=== PATIENT | female | born 1990 | race African-American/Black ===

== ENCOUNTER 2020-03-02 17:32 | Emergency (ER) | payer OTHER, SELFPAY ==
--- NOTE | 2020-03-02 17:56 | ED.UPPEXIN ---
HPI - Extremity Injury (Upper) General Chief Complaint: Wound/Laceration Stated Complaint: Index finger lac Time Seen by Provider: 03/02/20 17:52 Source: patient Mode of arrival: ambulatory Limitations: no limitations History of Present Illness HPI narrative: Patient presents for evaluation of right left index finger laceration. Patient states she was cutting and avocado with a knife in her right hand when it slipped and cut through her left index finger. She reports no active bleeding. No severe pain. Minimal pain with movement. Patient's tetanus is up-to-date. Related Data Allergies Allergy/AdvReac Type Severity Reaction Status Date / Time No Known Allergies Allergy Verified 05/28/19 06:13 Review of Systems Review of Systems: Narrative: CONSTITUTIONAL: Denies fever CARDIOVASCULAR: Denies chest pain GASTROINTESTINAL: Denies abdominal pain SKIN: Reports laceration to left index finger MUSCULOSKELETAL: Denies finger pain NEUROLOGIC: Denies numbness PMFSH Past Medical History Medical History (Updated 03/02/20 @ 18:48 by Callie Starkey MD) No pertinent past medical history Surgical History Surgical History (Updated 03/02/20 @ 18:46 by Callie Starkey MD) H/O section Social History Social History (Updated 03/02/20 @ 18:46 by Callie Starkey MD) Smoking status: Never smoker Substance use: never Living arrangements: with family Gender identity (if verbalized by the patient): Female Exam Narrative: Exam Narrative: GENERAL: Awake, alert, conversant HEAD: Normocephalic, atraumatic. EYES: PERRLA and EOMI. ENT: Nares clear, no rhinorrhea or epistaxis. Mucous membranes moist. NECK: Supple. CHEST: No respiratory distress, breathing even and non labored HEART: Regular rate, sinus rhythm ABDOMEN:Non distended, non tender EXTREMITIES: Normal range of motion. No edema. Radial pulse 2+. Intact sensation median, ulnar, radial nerve distribution. SKIN: Warm, dry, no rash. 1.5 cm superficial left second finger laceration. Proximal phalanx. Minimal active bleeding. No foreign body identified. NEURO:No focal deficits. Alert and oriented x3 Course Vital Signs Vital signs: Vital Signs Temperature 36.8 C 03/02/20 18:02 Pulse Rate 79 03/02/20 18:02 Respiratory Rate 18 03/02/20 18:02 Blood Pressure 136/89 03/02/20 18:02 Pulse Oximetry 100 03/02/20 18:02 Temperature 36.8 C 03/02/20 18:02 Pulse Rate 79 03/02/20 18:02 Respiratory Rate 18 03/02/20 18:02 Blood Pressure 136/89 03/02/20 18:02 Pulse Oximetry 100 03/02/20 18:02 Procedures Laceration Laceration 1: Date: 03/02/20 Time: 18:47 Site: hand Side (If applicable): left Size (cm): 1.5 Description: linear Depth: simple, single layer Local Anesthetic: lidocaine 1% Amount of anesthesia used (mL): 3 Pre-repair: wound explored and irrigated ====== Skin Level ====== Skin layer closed with: prolene Size (cm): 5-0 Number of sutures: 3 Technique: simple, interrupted ====== Subcutaneous Layer ====== ====== Muscle Layer ====== ====== Tendon Layer ====== MDM - Extremity Injury (Upper) MDM Narrative Medical decision making narrative: Patient was superficial left index finger laceration which was repaired. No deep tissue injury, no foreign body identified. No difficulty with movement making osseous injury very unlikely. No deformity and patient is neurovascularly intact. Patient to be discharged home with wound care instructions. Discharge Plan Discharge Clinical Impression: Laceration Patient Disposition: Home, Self-Care Condition: Stable Instructions: Laceration (ED) Additional Instructions: Please keep your wound clean and dry. Please do not soak it in any water. You may wash with antibacterial soap and pat it to dry. Please do not scrub the wound. Please have the woun
[2020-03-02 18:02] VITALS: BP 136/89; PULSE 79; RESP 18; TEMP 36.8; O2SAT 100
== END 2020-03-02 19:03 | disposition home or self-care (01) ==
PROVIDERS: Emergency Provider Emergency Medicine
DX: S61.211A Laceration without foreign body of left index finger without damage to nail, initial encounter (principal); W26.0XXA Contact with knife, initial encounter; Y93.G1 Activity, food preparation and clean up
CPT/HCPCS: 12001; 99282

== ENCOUNTER 2023-04-24 02:14 | Emergency (ER) | payer OTHER, SELFPAY ==
[2023-04-24 02:15] VITALS: BP 142/99; PULSE 81; RESP 16; TEMP 36.4; O2SAT 100
--- NOTE | 2023-04-24 02:50 | ED.GENADULT ---
HPI - General Adult General Chief complaint: Dental/Oral Stated complaint: gums inflammed Time Seen by Provider: 04/24/23 02:42 History of Present Illness HPI narrative: The patient is a 33-year-old female who presents to emergency department with chief complaint of inflamed gums. Patient reports she has an appointment scheduled this week with a dentist reports he started had a lot of discomfort in the upper gum his lab reports no drainage the Related Data Allergies Allergy/AdvReac Type Severity Reaction Status Date / Time No Known Allergies Allergy Verified 05/28/19 06:13 Review of Systems Review of Systems: A 10 system review of systems was completed on the patient and is negative except for what is stated in the HPI. Nursing and ancillary documentation was reviewed. PMFSH Past Medical History Medical History No pertinent past medical history Surgical History Surgical History H/O section Social History Social History Smoking status: Never smoker Substance use: never Living arrangements: with family Gender identity (if verbalized by the patient): Female Exam Narrative: GENERAL: Well-appearing, well-nourished, and in no acute distress. HEAD: Normocephalic, atraumatic. EYES: PERRLA and EOMI. ENT: Nares clear, no rhinorrhea or epistaxis. Mucous membranes moist. Multiple carious teeth he is having more dental fractures tenderness is going to NECK: Supple. CHEST: Clear to auscultation. No respiratory distress. HEART: Regular rate and rhythm. No murmur heard. Normal peripheral pulses. ABDOMEN: Soft, nontender, nondistended, normal active bowel sounds. EXTREMITIES: Normal range of motion. No edema. SKIN: Warm, dry, no rash. NEURO: No focal deficits. Alert and oriented x3. PSYCH: Normal mood and affect. Course Vital Signs Vital signs: Vital Signs Temperature 36.4 C L 04/24/23 02:15 Pulse Rate 81 04/24/23 02:15 Respiratory Rate 16 04/24/23 02:15 Blood Pressure 142/99 H 04/24/23 02:15 Pulse Oximetry 100 04/24/23 02:15 Oxygen Delivery Room Air 04/24/23 02:15 Temperature 36.4 C L 04/24/23 02:15 Pulse Rate 81 04/24/23 02:15 Respiratory Rate 16 04/24/23 02:15 Blood Pressure 142/99 H 04/24/23 02:15 Pulse Oximetry 100 04/24/23 02:15 Oxygen Delivery Room Air 04/24/23 02:15 Medical Decision Making Vital Signs Vital Signs: Vital Signs Temperature 36.4 C L 04/24/23 02:15 Pulse Rate 81 04/24/23 02:15 Respiratory Rate 16 04/24/23 02:15 Blood Pressure 142/99 H 04/24/23 02:15 Pulse Oximetry 100 04/24/23 02:15 Oxygen Delivery Room Air 04/24/23 02:15 Temperature 36.4 C L 04/24/23 02:15 Pulse Rate 81 04/24/23 02:15 Respiratory Rate 16 04/24/23 02:15 Blood Pressure 142/99 H 04/24/23 02:15 Pulse Oximetry 100 04/24/23 02:15 Oxygen Delivery Room Air 04/24/23 02:15 Discharge Plan Discharge Clinical Impression: Dental abscess Patient Disposition: Home, Self-Care Condition: Stable Instructions: Antibiotic Form, Dental Abscess (ED) Additional Instructions: Please follow-up with a dentist as soon as possible Prescriptions: New amoxicillin 500 mg capsule 500 mg PO Q12H Qty: 20 0RF diclofenac potassium 50 mg tablet 50 mg PO TID PRN (Reason: pain) Qty: 21 0RF No Action naproxen 500 mg tablet,delayed release (DR/EC) 500 mg PO BID Qty: 14 0RF Follow-up/Referrals: Laz Cabrera MD [Physician] - PHYSICIAN,SENIOR [employer] DEVELOPER [Primary Care Provider] - Stand Alone Forms: Work/School Release IP Time of Disposition: 02:55
[2023-04-24] MEDS: HYDROcodone/acetaminophen (*CRX) 5-325 MG TABLET 1 TAB PO (03:05)
[2023-04-24] MEDS: AMOXICILLIN 500 MG CAPSULE PO (03:05)
== END 2023-04-24 03:20 | disposition home or self-care (01) ==
LOC: ANHED 02:56
PROVIDERS: Emergency Provider Emergency Medicine
DX: K04.7 Periapical abscess without sinus (principal)
CPT/HCPCS: 99283; A9270

== ENCOUNTER 2023-09-19 13:36 | Outpatient (CLI) | payer OTHER, SELFPAY ==
--- NOTE | 2023-09-19 14:30 | NEURO_ITS ---
Impression: # Complains of pain and numbness and nocturnal paresthesia of both hands. # Moderate Carpal Tunnel Syndrome, right more than left. # Needle/EMG exam mildly abnormal. Nerve Conduction Studies Anti Sensory Summary Table Stim Site NR Peak (ms) P-T Amp (?V) Site1 Site2 Delta-P (ms) Dist (cm) Daryl (m/s) Left Median Anti Sensory (2-3nd Digit) Wrist 4.2 35.2 Wrist 2-3nd Digit 4.2 14.0 33 Wrist 4.8 37.6 Wrist 2-3nd Digit 4.2 14.0 33 Right Median Anti Sensory (2-3nd Digit) Wrist 4.5 20.5 Wrist 2-3nd Digit 4.5 14.0 31 Wrist 5.8 8.6 Wrist 2-3nd Digit 4.5 14.0 31 Left Radial Anti Sensory (Base 1st Digit) Wrist 2.0 22.0 Wrist Base 1st Digit 2.0 0.0 Right Radial Anti Sensory (Base 1st Digit) Wrist 2.4 20.0 Wrist Base 1st Digit 2.4 0.0 Left Ulnar Anti Sensory (5th Digit) Wrist 2.1 74.3 Wrist 5th Digit 2.1 14.0 67 Right Ulnar Anti Sensory (5th Digit) Wrist 2.3 48.0 Wrist 5th Digit 2.3 14.0 61 Motor Summary Table Stim Site NR Onset (ms) O-P Amp (mV) Site1 Site2 Delta-0 (ms) Dist (cm) Daryl (m/s) Left Median Motor (Abd Poll Brev) Wrist 4.4 3.4 Elbow Wrist 4.8 26.0 54 Elbow 9.2 2.9 Right Median Motor (Abd Poll Brev) Wrist 5.5 3.3 Elbow Wrist 4.7 25.0 53 Elbow 10.2 2.5 Left Ulnar Motor (Abd Dig Minimi) Wrist 2.0 8.5 A Elbow Wrist 4.5 27.0 60 A Elbow 6.5 7.1 Right Ulnar Motor (Abd Dig Minimi) Wrist 2.2 7.9 A Elbow Wrist 4.5 28.0 62 A Elbow 6.7 7.6 F Wave Studies NR F-Lat (ms) L-R F-Lat (ms) Left Median (Mrkrs) (Abd Poll Brev) 27.10 0.94 Right Median (Mrkrs) (Abd Poll Brev) 28.03 0.94 Left Ulnar (Mrkrs) (Abd Dig Min) 24.53 0.15 Right Ulnar (Mrkrs) (Abd Dig Min) 24.69 0.15 EMG Side Muscle Nerve Root Ins Act Fibs Amp Dur Recrt Comment Right 1stDorInt Ulnar C8-T1 Nml Nml Nml Nml Nml Right Ext Indicis Radial (Post Int) C7-8 Nml Nml Nml Nml Nml Right Ext Digitorum Radial (Post Int) C7-8 Nml Nml Nml Nml Nml Right BrachioRad Radial C5-6 Nml Nml Nml Nml Nml Right PronatorTeres Median C6-7 Nml Nml Nml Nml Nml Right Abd Poll Brev Median C8-T1 Nml Nml Nml >12ms +2 Right ABD Dig Min Ulnar C8-T1 Nml Nml Nml Nml Nml Left 1stDorInt Ulnar C8-T1 Nml Nml Nml Nml Nml Left Ext Indicis Radial (Post Int) C7-8 Nml Nml Nml Nml Nml Left Ext Digitorum Radial (Post Int) C7-8 Nml Nml Nml Nml Nml Left BrachioRad Radial C5-6 Nml Nml Nml Nml Nml Left PronatorTeres Median C6-7 Nml Nml Nml Nml Nml Left Abd Poll Brev Median C8-T1 Nml Nml Nml >12ms +1 Left ABD Dig Min Ulnar C8-T1 Nml Nml Nml Nml Nml MTDD
== END 2023-09-19 13:37 | disposition home or self-care (01) ==
LOC: ANHNEURO 13:36
PROVIDERS: PCP Internal Medicine; Visit Provider Plastic Surgery
DX: G56.03 Carpal tunnel syndrome, bilateral upper limbs (principal)
CPT/HCPCS: 95886; 95911

== ENCOUNTER 2024-06-26 16:19 | Emergency (ER) | payer OTHER, SELFPAY ==
--- OUTSIDE RECORDS SUMMARY | 2024-06-26 16:22 | XMS_ITS | Data Portability ---
Author Organization [facility] Address [address] [place] [address] Assessment Encounter Date Assessment Date Assessment LastModified by Organization Details LastModified Time 07/11/2023 07/11/2023 Annual gynecological exam performed. Patient will come back in a year unless there are new symptoms. Not available 07/11/2023 10:31:32 Plan of Treatment Reminders Order Date Submit Date Provider Last Modified By Organization Details Last Modified Time Details Appointments None record ed. Lab None record ed. Referral None record ed. Procedures None record ed. Surgeries None record ed. Imaging None record ed. Medication Orders None record ed. Patient TargetsNo targets recorded. Patient InstructionsNo instructions recorded. Reason for Referral None Reported. Results Created Date Observation Date Name Description Value Unit Range Abnormal Flag Note LastModifiedBy Organization Detail LastModifiedTime 07/11/19 24 07/11/2023 IMAGE GUIDE D PAP AND HPV REGAR DLESS image guided Pap, HPV regardless of Pap result SEE RESULT S BELOW CASE REPOR T: Cytol ogy Gynec ologi sara Repor t Case: [id number] Autho dameon jaime Provi aditya: Navdeep Child Colle cted: 07/11 1034 POOL PLAYER Order ing Locat ion: [place] [facility] Recei dawson: 07/12 0043 First Scree n: Strut z, Willi am, CT Rescr een: Nacha mpass ak, Sivil ay, CT Speci men: Scree zoey Pap - Image d, Cervi x STATE MENT OF ADEQU ACY: Satis facto ry for evalu ation Trans forma tion zone compo nent absen t The absen ce of an endoc ervic al compo nent was confi rmed by an addit ional scredennis ner. FINAL DIAGN OSIS: Negat dona for Intra epith elial Lesio den or Duncan leung (NIL) . Elect suzi bridges kory d by Kellen amezcua, Alejandro garcía, CT on 2023 at 6:51 PM ----- ----- ----- ----- ----- ----- ----- ----- ----- ----- ----- ----- ----- ----- ----- ----- ----- ---- HPV RESUL TS: HPV mRNA E6/E7 : No HPV mRNA Detec jes NOTE: This high risk HPV mRNA assay detec ts fourt een high- risk HPV types (16, 18, 31, 33, 35, 39, 45, 51, 52, 56, 58, 59, 66, 68) witho ut diffe renti ation . COMME NT: This speci men was revie wed by a Cytot echno logis t and/o r Patho logis t (as indic ated in this repor t) after evalu ation using the Thinp rep Imagi ng Syste m. CLINI SARA INFOR MATIO N: Menst rual Statu s: LMP (if appli cable ): Clini sara Histo ry/Pr eviou s Pap: Type of Neopl renetta (if appli cable ): Signi fican t Clini sara Findi ngs: Other Histo ry: Hormo lala (if appli cable ): PAP EDUCA VIKKI L NOTE: The Pap Test is a scree zoey test with an inher ent false negat dona rate. Liqui d-bas ed sampl ing may decre ase, but will not elimi elinor, false negat dona resul ts. A negat dona resul t does not precl ude the prese nce and/o r devel opmen t of disea se, since the prese nce of abnor mal cells in the sampl e depen ds on the locat ion of the lesio n and sampl ing techn ique. Velia nued regul ar scree zoey is the best metho d of cance r preve ntion . If repor jes cytol ogic findi ng do not corre late with physi sara and/o r histo rical findi ngs, furth er inves tigat ion is recom teresa d, as clini hardeep myers nted. Not Available [facility] (Lab) [address], [place], [address], 07/14/2023 19:53:44 Result Notes None recorded. Procedures Surgical History Date Name Laterality Status Provider Name and Address Organization Details Recorded Time 3 Date of Last Pap Smear completed [facility] 07/11/2023 10:31:45 2 Caesarean Section completed [facility] 07/11/2023 10:42:08 Imaging Results None recorded. Procedure Notes None recorded. Medical Equipment None Reported. Allergies No known drug allergies Medications Name Sig Start Date Stop Date Status Note LastModified by Organization Details LastModified Time amoxicillin 500 mg capsule 500 MG ORALLY EVERY 12 HOURS 07/11 completed Not Available Not Available Not Available diclofenac potassium 50 mg tablet 50 MG ORALLY THREE TIMES A DAY NEEDED FOR PAIN 07/11 completed Not Available Not Available Not Available Vitals Date Recorded Body height Body mass index (BMI) Body weight Systolic blood pressure Diastolic blood pressure Provider Name and Address Organization Details Last Updated DateTime 07/11/2023 149.86 cm 39.2 kg/m2 39239.92 g 135 mm[Hg] 81 mm[Hg] Makenna Saucedo [facility] 10:38:47 Social History Question Answer Notes LastModified by Organizat ion Details LastModified Time Tobacco Smoking Status Never Smoker Makenna Saucedo [facility] 07/11/2023 10:41:52 What Is Your Level Of Alcohol Consumption? Occasional Information not available 07/11/2023 How Many Years Have You Consumed Alcohol? 10 Information not available 07/11/2023 Are You Blind Or Do You Have Difficulty Seeing? No Information not available 07/11/2023 What Is Your Level Of Caffeine Consumption? None Information not available 07/11/2023 How Much Tobacco Do You Chew? None Information not available 07/11/2023 In The 14 Days Before Symptom Onset, Have You Had Close Contact With A Laboratory-confir med COVID-19 While That Case Was Ill? No Information not available 07/11/2023 In The 14 Days Before Symptom Onset, Have You Had Close Contact With A Person Who Is Under Investigation For COVID-19 While That Person Was Ill? No Information not available 07/11/2023 Have You Been To An Area Known To Be High Risk For COVID-19? No Information not available 07/11/2023 Are You Deaf Or Do You Have Serious Difficulty Hearing? No Information not available 07/11/2023 What Type Of Diet Are You Following? SPECIFIC Information not available 07/11/2023 What Is The Highest Grade Or Level Of School You Have Completed Or The Highest Degree You Have Received? 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 No Information not available 07/11/2023 Do You Use Protection During Sex? Usually Information not available 07/11/2023 Do You Use Your Seat Belt Or Car Seat Routinely? No Information not available 07/11/2023 Do You Have Smoke And Carbon Monoxide Detectors In Your Home? No Information not available 07/11/2023 At What Age Did You Start Smoking Tobacco? 0 Information not available 07/11/2023 How Much Tobacco Do You Smoke? No Information not available 07/11/2023 Do You Feel Stressed (tense, Restless, Nervous, Or Anxious, Or Unable To Sleep At Night)? [id number] Information not available 07/11/2023 Do You Use Any Illicit Or Recreational Drugs? No Information not available 07/11/2023 Do You Use Sunscreen Routinely? Yes Information not available 07/11/2023 How Many Years Have You Smoked Tobacco? 0 Information not available 07/11/2023 Have You Used IV Drugs? No Information not available 07/11/2023 Sex: Unknown Functional Status Question Answer Note LastModified by Organization D etails LastModified Time Are you able to walk? YESWOREST Information not available 07/11/2023 What is your exercise level? Moderate Information not available 07/11/2023 Mental Status None recorded. Family History Relationship Description Onset Age of this Age Resolved Age Notes LastModified by Organization Details LastModified Time Unspecified Relation Family history unknown Not available 2023 10:31:42 Medical History Condition Response Allergies (Food, seasonal, environmental ) N Other N Breast Cancer N Drug/Latex Allergies/Reactions N Blood Transfusion N Dermatologic Disorders N Lung Disease N Defects or Inherited Disease N Breast Problem N Gestational Diabetes N Hematologic disorders N Anesthesia Complications N History of STI Y Deep Vein Thrombosis N Polycystic ovary syndrome N Anxiety Disorder N Autoimmune disease N Arthritis N Infertility N Polyps N Acid Reflux (GERD) N History of abnormal pap Y Cancer N Stroke N Varicosities N Neurologic/Epilepsy N Endometriosis N High Cholesterol N Headaches N Fibromyalgia N Kidney Disease N Heart Problems N Kidney or Bladder Problems N Thyroid Problems N GI Problems N Eating Disorder N Anemia N Art (IVF or FET) N Psychiatric Illness N Ovarian Cancer N Diabetes N Pulmonary (TB, Asthma) N Hepatitis/Liver Disease N No Past Medical History N Eczema N Urinary Tract Infection N Abuse/Domestic Violence N Asthma N Trauma/Violence N Depression/ depression N Heart Disease N Pre-Eclampsia N Hypertension N Osteoporosis N Thrombophilias N Gynecological History Statement/Question Response Abnormal Pap N Flow Moderate Date of LMP 06/22/2023 N On BCP's at Conception? N STIs/STDs Y Was last menstrual period normal Y HPV Vaccine Y Duration of Flow (days) 3 Current Control Method Condoms Age at First Child 16 Are cycles usually normal Y Frequency of Cycle (Q days) 30 Sexually Active? Y Condoms Menses Monthly Y Age of first menstrual cycle 10 Date of Last Pap Smear 06/21/2022 Sexual Problems? N LMP Approximate Desired Control Method Condoms N Obstetrics History GPAL:G 4 P 1 0 3 1 Type Value Full Term 1 Induced 3 Living 1 Total 4 Past Encounters Encounter ID Performer Location Encounter Start Date Encounter Closed Date Diagnosis/Indication Diagnosis SNOMED-CT Code Diagnosis ICD10 Code Diagnosis Note [id number] Taina Crowell [facility] [address] [address] 07/11/2023 10:26:02 07/11/2023 11:32:08 Gynecologic examination 96229426 Z01.419 Z11.51 Take Calcium with Vitamin D 1200mg daily if not receiving in daily diet. It is strongly advised to have an annual flu shot and up can obtain at most pharmacies . If you have not had a TDap shot in the last 10 years you should obtain one as well. Discussed with patient & provided with informatio n regarding Gardisil vaccine to prevent the 4 strains for HPV that cause cervical cancer if under age 26. Encourage safe sexual practices, to use condoms and limit partners if not already in a monogamous relationsh ip. Do monthly self breast exams. Have mammogram yearly or every other year depending on family history. BRCA testing is now available for patients with strong genetic history of female cancer. If interested contact the office. Engage in daily exercise of low impact aerobic exercise 45-60 minutes 4-5 times weekly. Avoid tobacco and illicit drugs as well as using moderation with alcohol intake less than 1-2 8 oz beverages daily. This lifestyle behavior pattern will lead to less health conditions and longer life span. If BMI greater than 25 weight watchers or dietary consult advised. Patient received above instructio ns, and questions have been answered. If you have any questions please call or respond to this email. Patient was made aware of the patient portal and may obtain a paper copy of today's plan if desired. Pap/hpv sent STD Screen declined Genetic Screen discussed Colon Screen na Dexa Screen na Routine Labs PCP Health Concerns Section Related Observation LastModified by Organization Detai ls LastModified Time None Recorded Concern Status LastModified by Organization Details LastModified Time None Recorded Advance Directives Directive None Recorded Payers Encounter Date Sequence Insurance Name Policy Number Policy Ng Covered Member ID Ng Member ID Guarantor Name 07/11/2023 1 [facility] (MEDICAID HMO) [id number] Kirsty Gray [id number] Kirsty Gray Notes Date Note Type Note Provider Name and Address Organization Details Recorded Time 07/11/2023 text/html Annual GYNReport ed bypatient.History: no gynecologic complaints Menstrual cycle:Normal menses Urinary symptoms:No hematuria; No incontinence Vulva:No genital lesion Vagina:Normal vaginal discharge Breast:No breast pain; No breast lump; No nipple discharge Current Contraception:Sati sfied with current contraception; Condoms Sexual complaints:No sexual complaints; No pain during intercourse; Normal libido Menopausal Symptoms:No menopausal symptoms; Normal vaginal lubrication Psychological symptoms:No depression; No anxiety; No PMDD Preventive measures:Encourage self breast examination; Encourage regular exercise; Encourage no tobacco use; Encourage regular mammograms starting age 40; Followed with yearly pap smears Taina Crowell [facility]- [address], [place], [address], [facility] 07/11/2023 11:30:50 OBGyn Episode Ob Episode Information Episode Created Date Number of Fetuses Patient Bloodtype Patient rh Status Prepregnancy Weight lbs Domestic Partner Domestic Partner Phone Father Name Instructor Business Education Status 07/11/19 24 1 CLOSED Fetus Data First Name Last Name Admitted to NICU Weight (g) Sex Living Outcome Pediatric Complications Fetus ID Race Codes Race Delivery Type , Induced Bruce Calculation Initial Bruce Date Initial Exam Date Initial Exam Provider Initial Ultrasound Date Last Menstrual Period Date Ultra Sound Weeks Gestation 0 Eighteen To Twenty Week Bruce Update Ultra Sound Date Fundal Height At Umbil Quickening Date Ultra Sound Latest Weeks Gestation Final Bruce Confirmed By Final Bruce Confirmed Date Final Bruce Date Ultra Sound Latest Days Gestation 0 0 Menstrual History Last Menstrual Date Menses Monthly On Bcp Conception Prior Menses Frequency Hcg Plus Date Menarche Onset Age Delivery Information Delivery Date Delivery Type Labor Anesthesia Weeks Gestation Incision Type Labor Labor Length Hrs Delivered By Post Complications Tubal Sterilization Discharge Date Comments 3 Discharge Information Feeding Method Contraceptive Method Maternal HG B and HCT Levels Ob Episode Information Episode Created Date Number of Fetuses Patient Bloodtype Patient rh Status Prepregnancy Weight lbs Domestic Partner Domestic Partner Phone Father Name Instructor Business Education Status 07/11/19 24 1 CLOSED Fetus Data First Name Last Name Admitted to NICU Weight (g) Sex Living Outcome Pediatric Complications Fetus ID Race Codes Race Delivery Type , Induced Bruce Calculation Initial Bruce Date Initial Exam Date Initial Exam Provider Initial Ultrasound Date Last Menstrual Period Date Ultra Sound Weeks Gestation 0 Eighteen To Twenty Week Bruce Update Ultra Sound Date Fundal Height At Umbil Quickening Date Ultra Sound Latest Weeks Gestation Final Bruce Confirmed By Final Bruce Confirmed Date Final Bruce Date Ultra Sound Latest Days Gestation 0 0 Menstrual History Last Menstrual Date Menses Monthly On Bcp Conception Prior Menses Frequency Hcg Plus Date Menarche Onset Age Delivery Information Delivery Date Delivery Type Labor Anesthesia Weeks Gestation Incision Type Labor Labor Length Hrs Delivered By Post Complications Tubal Sterilization Discharge Date Comments 1 Discharge Information Feeding Method Contraceptive Method Maternal HG B and HCT Levels Ob Episode Information Episode Created Date Number of Fetuses Patient Bloodtype Patient rh Status Prepregnancy Weight lbs Domestic Partner Domestic Partner Phone Father Name Instructor Business Education Status 07/11/19 24 1 CLOSED Fetus Data First Name Last Name Admitted to NICU Weight (g) Sex Living Outcome Pediatric Complications Fetus ID Race Codes Race Delivery Type 2863.07 [id number] M Full Term [id number] Primary Bruce Calculation Initial Bruce Date Initial Exam Date Initial Exam Provider Initial Ultrasound Date Last Menstrual Period Date Ultra Sound Weeks Gestation 0 Eighteen To Twenty Week Bruce Update Ultra Sound Date Fundal Height At Umbil Quickening Date Ultra Sound Latest Weeks Gestation Final Bruce Confirmed By Final Bruce Confirmed Date Final Bruce Date Ultra Sound Latest Days Gestation 0 0 Menstrual History Last Menstrual Date Menses Monthly On Bcp Conception Prior Menses Frequency Hcg Plus Date Menarche Onset Age Delivery Information Delivery Date Delivery Type Labor Anesthesia Weeks Gestation Incision Type Labor Labor Length Hrs Delivered By Post Complications Tubal Sterilization Discharge Date Comments 2 40 Discharge Information Feeding Method Contraceptive Method Maternal HG B and HCT Levels Ob Episode Information Episode Created Date Number of Fetuses Patient Bloodtype Patient rh Status Prepregnancy Weight lbs Domestic Partner Domestic Partner Phone Father Name Instructor Business Education Status 07/11/19 24 1 CLOSED Fetus Data First Name Last Name Admitted to NICU Weight (g) Sex Living Outcome Pediatric Complications Fetus ID Race Codes Race Delivery Type , Induced [id number] Bruce Calculation Initial Bruce Date Initial Exam Date Initial Exam Provider Initial Ultrasound Date Last Menstrual Period Date Ultra Sound Weeks Gestation 0 Eighteen To Twenty Week Bruce Update Ultra Sound Date Fundal Height At Umbil Quickening Date Ultra Sound Latest Weeks Gestation Final Bruce Confirmed By Final Bruce Confirmed Date Final Bruce Date Ultra Sound Latest Days Gestation 0 0 Menstrual History Last Menstrual Date Menses Monthly On Bcp Conception Prior Menses Frequency Hcg Plus Date Menarche Onset Age Delivery Information Delivery Date Delivery Type Labor Anesthesia Weeks Gestation Incision Type Labor Labor Length Hrs Delivered By Post Complications Tubal Sterilization Discharge Date Comments 6 Discharge Information Feeding Method Contraceptive Method Maternal HG B and HCT Levels
--- OUTSIDE RECORDS SUMMARY | 2024-06-26 16:22 | XMS_ITS | Clinical Summary ---
Author Organization [facility] Address [address] [place] [address] Care Team Providers Care Menhaden Fishing Crew Member Name Role Phone Unavailable Primary Care Provider Unavailabl e Source Comments [facility],non-owned Affiliates and Associated Physician Practices is amultiple site organization consisting of ambulatory clinics and hospital sitesin [place], [place], [place] and [place]. This disclosure is being madepursuant to the Care Everywhere program and may not contain all information available regarding this patient. Last updated 18.[facility] [email or web address] Allergies No known active allergies Social History Tobacco Use Types Packs/Day Years Used Date Smoking Tobacco: Never Assessed Sex and Gender Information Value Date Recorded Sex Assigned at Not on file Gender Identity Not on file Sexual Orientation Not on file Plan of Treatment Health Maintenance Due Date Last Done Comments PAP SMEAR 1988 HIV SCREENING 01/04/2003 HEPATITIS C SCREENING 12/31/2005 DTAP/TDAP/TD VACCINES (1 - Tdap) 01/04/2007 HEPATITIS B VACCINE (1 of 3 - 19+ 3-dose series) 01/04/2007 COVID-19 VACCINE (2023-2 5 season) 2024 INFLUENZA VACCINE (#1) 2024 DEPRESSION SCREENING 05/22/2024 ZOSTER VACCINE (1 of 2) 01/04/2038 HIB VACCINE Aged Out No longer eligi ble based on patient's age to complete this topic HPV VACCINE Aged Out No longer eligi ble based on patient's age to complete this topic MENINGOCOCCAL (Group B) VACCINE Aged Out No longer eligible based on patient's age to complete this topic MENINGOCOCCAL VACCINE Aged Out No papito arnoldo eligible based on patient's age to complete this topic PNEUMOCOCCAL VACCINE Aged Out No long er eligible based on patient's age to complete this topic
--- OUTSIDE RECORDS SUMMARY | 2024-06-26 16:22 | XMS_ITS | Patient Health Summary ---
Author Organization [facility] Address [address] [place] [address] Care Team Providers Care Stacker Operator Name Role Phone Unavailable Primary Care Provider Unavailabl e Note from [facility] [place],non-owned Affiliates and Associated Physician Practices is amultiple site organization consisting of ambulatory clinics and hospital sitesin [place], [place], [place] and [place]. This disclosure is being madepursuant to the Care Everywhere program and may not contain all information available regarding this patient. Last updated 18.[facility] [employer] Allergies No known active allergies Social History Tobacco Use Types Packs/Day Years Used Date Smoking Tobacco: Never Assessed Sex and Gender Information Value Date Recorded Sex Assigned at Not on file Gender Identity Not on file Sexual Orientation Not on file Procedures * SKIN TEST PPD - POINT OF CARE(Performed 08/14/2018) Performed for PPD screening test Results * SKIN TEST PPD - POINT OF CARE (08/14/2018) PPD neg Other MISCELLANEOUS SAMPLE S / Unknown 08/14/2018 Kirstie Napier SITE WORKER-OUTSIDE INDUSTRIAL SALES REPRESENTATIVE LAB - POINT OF [place] RE ORDERABLES
--- OUTSIDE RECORDS SUMMARY | 2024-06-26 16:22 | XMS_ITS | Referral Summary ---
Author Organization [facility] Address [address] [place] [address] Care Team Providers Care Associate Professor Of Music Name Role Phone Unavailable Primary Care Provider Unavailabl e Source Comments [facility],non-owned Affiliates and Associated Physician Practices is amultiple site organization consisting of ambulatory clinics and hospital sitesin [place], [place], [place] and [place]. This disclosure is being madepursuant to the Care Everywhere program and may not contain all information available regarding this patient. Last updated 18.[facility] [employer] Allergies No known active allergies Social History Tobacco Use Types Packs/Day Years Used Date Smoking Tobacco: Never Assessed Sex and Gender Information Value Date Recorded Sex Assigned at Not on file Gender Identity Not on file Sexual Orientation Not on file Plan of Treatment Not on file Administered Medications
[2024-06-26 16:48] VITALS: BP 133/91; PULSE 104; RESP 16; TEMP 36.4; O2SAT 100
--- NOTE | 2024-06-26 18:38 | PC.NURSE ---
pt left in NAD
--- OUTSIDE RECORDS SUMMARY | 2024-06-26 19:01 | XMS_ITS | Patient Health Summary ---
Author Organization [facility] Address [address] [place] [address] Care Team Providers Care Americanization Teacher Name Role Phone Unavailable Primary Care Provider Unavailabl e Note from [facility],non-owned Affiliates and Associated Physician Practices is amultiple site organization consisting of ambulatory clinics and hospital sitesin [place], [place], [place] and [place]. This disclosure is being madepursuant to the Care Everywhere program and may not contain all information available regarding this patient. Last updated 18.[facility] [employer] Allergies No known active allergies Social History [...] SAMPLE S / Unknown 08/14/2018 Kirstie Napier CORRECTIONAL OFFICER LIEUTENANT-PETROLEUM GEOLOGIST LAB - POINT OF [place] RE ORDERABLES
--- OUTSIDE RECORDS SUMMARY | 2024-06-26 19:01 | XMS_ITS | Clinical Summary ---
Author Organization [facility] Address [address] [place] [address] Care Team Providers Care Hotel Casino Floorperson Name Role Phone Unavailable Primary Care Provider Unavailabl e Source Comments [facility],non-owned Affiliates and Associated Physician Practices is amultiple site organization consisting of ambulatory clinics and hospital sitesin [place], [place], [place] and [place]. This disclosure is being madepursuant to the Care Everywhere program and may not contain all information available regarding this patient. Last updated 18.[facility] [employer] Allergies No known active allergies Social History [...]
--- OUTSIDE RECORDS SUMMARY | 2024-06-26 19:01 | XMS_ITS | Referral Summary ---
Author Organization [facility] Address [address] [place] [address] Care Team Providers Care Packer Dried Beef Name Role Phone Unavailable Primary Care Provider Unavailabl e Source Comments [facility],non-owned Affiliates and Associated Physician Practices is amultiple site organization consisting of ambulatory clinics and hospital sitesin [place], [place], [place] and [place]. This disclosure is being madepursuant to the Care Everywhere program and may not contain all information available regarding this patient. Last updated 18.[facility] [employer] Allergies No known active allergies Social History Tobacco Use Types Packs/Day Years Used Date Smoking Tobacco: Never Assessed Sex and Gender Information Value Date Recorded Sex Assigned at Not on file Gender Identity Not on file Sexual Orientation Not on file Plan of Treatment Not on file Administered Medications
== END 2024-06-26 18:38 | disposition left against medical advice (07) ==
DX: R51.9 Headache, unspecified (principal)
CPT/HCPCS: 99199

== ENCOUNTER 2024-06-27 08:22 | Emergency (ER) | payer OTHER, SELFPAY ==
--- NOTE | ~2024-06-27 | CT_ITS ---
EXAMINATION: CT brain wo con DATE: 06/27/2024 11:54 INDICATION: Migraines presenting with nausea and dizziness TECHNIQUE: Computed tomography (CT) of the head was performed without intravenous contrast. Sagittal and coronal reconstructions were performed. The mA was adjusted according to patient size. Iterative reconstruction technique was employed. The dose-length product was 605.33 mGy-cm. COMPARISON: None FINDINGS: No acute intracranial hemorrhage, acute infarction or abnormal extra axial fluid collection. Ventricl es are normal and symmetric. No mass/mass effect. The orbits, paranasal sinuses and mastoid air cells are normal. IMPRESSION: 1. Normal head CT. Reviewed, dictated and finalized at location A. ARDESS SUPERVISOR IMPRESSION: 1. Normal head CT.
[2024-06-27 08:26] VITALS: BP 134/86; PULSE 92; RESP 18; TEMP 36.9; O2SAT 100
--- OUTSIDE RECORDS SUMMARY | 2024-06-27 08:26 | XMS_ITS | Patient Health Summary ---
Author Organization [facility] Address [address] [place] [address] Care Team Providers Care Certified Credit Counselor Name Role Phone Unavailable Primary Care Provider Unavailabl e Note from [facility],non-owned Affiliates and Associated Physician Practices is amultiple site organization consisting of ambulatory clinics and hospital sitesin [place], [place], [place] and [place]. This disclosure is being madepursuant to the Care Everywhere program and may not contain all information available regarding this patient. Last updated 18.[facility] [employer] Allergies No known active allergies Social History [...] SAMPLE S / Unknown 08/14/2018 Kirstie Napier OPERATIONAL INTELLIGENCE OFFICER-SEMICONDUCTOR LAB TECHNICIAN LAB - POINT OF CA RE ORDERABLES
--- OUTSIDE RECORDS SUMMARY | 2024-06-27 08:26 | XMS_ITS | Referral Summary ---
Author Organization [facility] Address [address] [place] [address] Care Team Providers Care Knitting Supervisor Name Role Phone Unavailable Primary Care Provider Unavailabl e Source Comments [facility],non-owned Affiliates and Associated Physician Practices is amultiple site organization consisting of ambulatory clinics and hospital sitesin [place], [place], [place] and [place]. This disclosure is being madepursuant to the Care Everywhere program and may not contain all information available regarding this patient. Last updated 18.[facility] [employer] Allergies No known active allergies Social History Tobacco Use Types Packs/Day Years Used Date Smoking Tobacco: Never Assessed Sex and Gender Information Value Date Recorded Sex Assigned at Not on file Gender Identity Not on file Sexual Orientation Not on file Plan of Treatment Not on file Administered Medications
--- OUTSIDE RECORDS SUMMARY | 2024-06-27 08:26 | XMS_ITS | Clinical Summary ---
Author Organization [facility] Address [address] [place] [address] Care Team Providers Care Systems Manager Name Role Phone Unavailable Primary Care Provider Unavailabl e Source Comments [facility],non-owned Affiliates and Associated Physician Practices is amultiple site organization consisting of ambulatory clinics and hospital sitesin [place], [place], [place] and [place]. This disclosure is being madepursuant to the Care Everywhere program and may not contain all information available regarding this patient. Last updated 18.[facility] [employer] Allergies No known active allergies Social History [...]
[2024-06-27 10:57] VITALS: BP 124/90; PULSE 86; RESP 16; O2SAT 100
[2024-06-27] MEDS: ACETAMINOPHEN 500 MG TABLET 1000 MG PO (11:44)
--- NOTE | 2024-06-27 11:46 | PC.NURSE ---
at this time, pt refused IV and IV medicine. this RN educated on the benefits of medication and pt decided she didn't want to take them
--- OUTSIDE RECORDS SUMMARY | 2024-06-27 11:49 | XMS_ITS | Patient Health Summary ---
Author Organization [facility] Address [address] [address] Care Team Providers Care Bottle Gauger Name Role Phone Unavailable Primary Care Provider Unavailabl e Note from [facility],non-owned Affiliates and Associated Physician Practices is amultiple site organization consisting of ambulatory clinics and hospital sitesin [place], [place], [place] and [place]. This disclosure is being madepursuant to the Care Everywhere program and may not contain all information available regarding this patient. Last updated 18.[facility] [employer] Allergies No known active allergies Social History [...] SAMPLE S / Unknown 08/14/2018 Kirstie Napier PARISH VISITOR-GAMING COMMISSIONER LAB - POINT OF CA RE ORDERABLES
--- OUTSIDE RECORDS SUMMARY | 2024-06-27 11:50 | XMS_ITS | Referral Summary ---
Author Organization [facility] Address [address] [place] [address] Care Team Providers Care Water Fitness Instructor Name Role Phone Unavailable Primary Care Provider Unavailabl e Source Comments [facility],non-owned Affiliates and Associated Physician Practices is amultiple site organization consisting of ambulatory clinics and hospital sitesin [place], [place], [place] and [place]. This disclosure is being madepursuant to the Care Everywhere program and may not contain all information available regarding this patient. Last updated 18.[facility] [employer] Allergies No known active allergies Social History Tobacco Use Types Packs/Day Years Used Date Smoking Tobacco: Never Assessed Sex and Gender Information Value Date Recorded Sex Assigned at Not on file Gender Identity Not on file Sexual Orientation Not on file Plan of Treatment Not on file Administered Medications
--- OUTSIDE RECORDS SUMMARY | 2024-06-27 11:50 | XMS_ITS | Clinical Summary ---
Author Organization [facility] Address [address] [place] [address] Care Team Providers Care Excelsior Machine Operator Name Role Phone Unavailable Primary Care Provider Unavailabl e Source Comments [facility],non-owned Affiliates and Associated Physician Practices is amultiple site organization consisting of ambulatory clinics and hospital sitesin [place], [place], [place] and [place]. This disclosure is being madepursuant to the Care Everywhere program and may not contain all information available regarding this patient. Last updated 18.[facility] [employer] Allergies No known active allergies Social History [...]
--- NOTE | 2024-06-27 12:04 | ED_ITS ---
HPI - Headache General Chief Complaint: Headache Stated Complaint: pressure/tension at back of head, here yesterday Time Seen by Provider: 06/27/24 11:14 Source: patient Mode of arrival: ambulatory Limitations: no limitations History of Present Illness HPI Narrative: Patient is a 34-year-old female who presents the ED with report of headaches. Patient reports she has been having intermittent headaches over the last couple of weeks, described as a pressure in her posterior head which wraps around to her frontal region. Has been taking Tylenol/ibuprofen intermittently without significant improvement. Reports intermittent lightheadedness, nausea yesterday, photophobia. Denies vision changes, vomiting, syncope/LOC, fevers, neck pain, cough or cold symptoms, focal numbness or weakness. Patient did come to the ED yesterday, but left without being seen. Related Data Home Medications ?Medication ?Instructions ?Recorded ?Confirmed ?Last Taken ?Type burdock root 500 mg capsule mg PO 07/20/23 09/25/23 Unknown History lemon balm 1 tablet BYMOUTH DAILY 07/20/23 09/25/23 Unknown History magnesium oxide 1 tablet PO DAILY 07/20/23 09/25/23 Unknown History Allergies Allergy/AdvReac Type Severity Reaction Status Date / Time No Known Allergies Allergy Verified 06/27/24 08:24 Review of Systems Review of Systems: All systems reviewed & are unremarkable except as noted in HPI. All systems reviewed & are unremarkable except as noted in HPI and below PMFSH Past Medical History Medical History No pertinent past medical history Surgical History Surgical History H/O section (~12/2011) Family History Family History Father Heart disease Social History Social History Smoking status: Never smoker Alcohol intake: current Substance use type: does not use Lack of Transportation: No Lack of Food: Never True Current Housing: I Have Housing Concerned About Future Housing: No Difficulty Paying Gas/Electric Bills: No Difficulty Paying for Meds: No Currently Unemployed: No Education: High School Diploma/GED Difficulty w/ Childcare or Family Care: No Living arrangements: with family Gender identity (if verbalized by the patient): Female Exam Narrative: GENERAL: Well appearing, obese with BMI of 35.4, non-toxic, in no acute distress. HEAD: Normocephalic, atraumatic. EYES: PERRL/EOMI, no nystagmus, conjunctiva clear NECK: No meningeal signs RESPIRATORY: Airway patent, respirations nonlabored. Clear to auscultation bilaterally, no rales, rhonchi, wheezing. CARDIOVASCULAR: Regular rate and rhythm MUSCULOSKELETAL: Moves all extremities. No gross deformities. SKIN: Warm, dry, normal color. NEURO: A&O X3. Speech clear. Cranial nerves II-XII grossly intact. Steady gait. No ataxic movements. No focal deficits. No pronator drift. Equal retail presentation specialist strength bilaterally PSYCHIATRIC: Appropriate mood and affect. Normal interaction. Course Vital Signs Vital signs: Vital Signs Temperature 98.5 F 06/27/24 08:26 Pulse Rate 92 06/27/24 08:26 Respiratory Rate 18 06/27/24 08:26 Blood Pressure 134/86 06/27/24 08:26 Pulse Oximetry 100 06/27/24 08:26 Oxygen Delivery Room Air 06/27/24 08:26 Temperature 98.5 F 06/27/24 08:26 Pulse Rate 86 06/27/24 10:57 Respiratory Rate 16 06/27/24 10:57 Blood Pressure 124/90 06/27/24 10:57 Pulse Oximetry 100 06/27/24 10:57 Oxygen Delivery Room Air 06/27/24 08:26 MDM - Headache MDM Narrative Medical decision making narrative: Patient's headache was not sudden in onset or maximal in severity. There are no focal neurological deficits on exam. Subarachnoid hemorrhage is felt to be unlikely at this time. CT brain was obtained and negative. There is no history of fever and neck is supple on evaluation without meningeal signs. Meningitis is felt to be unlikely. No traumatic history or signs of trauma on evaluation. No vision changes or ocular signs of acute glaucoma. Patient declined to receive IV and IV medications. Given Tylenol here, declined IM Toradol. Patient's headache is felt to be benign cephalgia and reasonable for further outpatient management. Advised patient to follow with PCP for further evaluation. Given reasons to return. Medical Records Attestation: I reviewed the patient's medical records. Imaging Data Attestation: I personally reviewed and interpreted this imaging study as follows: Radiologist's impression: ITS Impressions Head CT 06/27/24 12:00 IMPRESSION: 1. Normal head CT. Discharge Plan Discharge Clinical Impression: Intermittent headache Patient Disposition: Home, Self-Care Condition: Stable Instructions: Antibiotic Form, Migraine Headache (ED), Acute Headache (ED) Additional Instructions: Continue Tylenol and ibuprofen as needed for pain. Utilize Zofran as needed for further nausea. Get plenty of rest. Stay well hydrated. Recommend low light/ low stimulus environment, limiting screen time. Follow-up with your primary care doctor for further evaluation if needed. Return to the ED if you experience worsening or severe pain, severe dizziness, passing out, vision changes, numbness or weakness in arm or leg, unable to keep down food or drink, or any other symptoms of concern. Patient Language: Kyrgyz Prescriptions: New ondansetron 4 mg tablet,disintegrating 4 mg PO Q8H PRN (Reason: nausea and vomiting) Qty: 15 0RF No Action magnesium oxide 1 tablet PO DAILY lemon balm 1 tablet BYMOUTH DAILY burdock root 500 mg capsule PO Follow-up/Referrals: UNKNOWN,DOCTOR [Primary Care Provider] - Time of Disposition: 12:06
== END 2024-06-27 13:04 | disposition home or self-care (01) ==
PROVIDERS: Emergency Provider Physician Assistant
DX: R51.9 Headache, unspecified (principal)
CPT/HCPCS: 70450; 96361; 96372; 96374; 96375; 99284; A9270

== ENCOUNTER 2024-09-13 07:12 | Emergency (ER) | payer OTHER, SELFPAY ==
--- NOTE | ~2024-09-13 | XR_ITS ---
EXAMINATION: XR chest 1V portable 09/13/2024 07:32 INDICATION: Cough PROCEDURE: AP portable chest COMPARISON: 09/2023 FINDINGS: The lungs are clear. The cardiomediastinal silhouette is within normal limits. There are no pleural effusions. There is no pneumothorax suspected. IMPRESSION: 1: NO ACUTE CARDIOPULMONARY DISEASE. Reviewed, dictated and finalized at location A.
--- OUTSIDE RECORDS SUMMARY | 2024-09-13 07:14 | XMS_ITS | Data Portability ---
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 Not Available [facility] (Lab) [address], [place], [address], 07/14/2023 19:53:44 Result Notes None recorded. Procedures Surgical History Date Name Laterality Status Provider Name and Address Organization Details Recorded Time 3 Date of Last Pap Smear completed Makenna [facility] 07/11/2023 10:31:45 2 Caesarean Section completed Makenna [facility] 07/11/2023 10:42:08 Imaging Results None recorded. [...] Updated DateTime 07/11/2023 149.86 cm 39.2 kg/m2 33288.92 g 135 mm[Hg] 81 mm[Hg] Makenna Saucedo [facility] 10:38:47 Social History Question Answer Notes LastModified by Organizat ion Details LastModified Time Tobacco Smoking Status Never Smoker Makenna Saucedo [facility] 07/11/2023 10:41:52 What Is Your Level [...] Or The Highest Degree You Have Received? 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 [id number] Information not available 07/11/2023 Do You Use [...] (Food, seasonal, environmental ) N Other N Drug/Latex Allergies/Reactions N Blood Transfusion N Breast Cancer N Dermatologic Disorders N Lung Disease N Defects or Inherited Disease N Breast Problem N Gestational Diabetes N Hematologic disorders N Anesthesia Complications N History of STI Y Deep Vein Thrombosis N Polycystic ovary syndrome N Anxiety Disorder N Autoimmune disease N Arthritis N Polyps N Infertility N Acid Reflux (GERD) N History of abnormal pap Y Cancer N Varicosities N Stroke N Neurologic/Epilepsy N Endometriosis N High Cholesterol N Fibromyalgia N Headaches N Kidney Disease N Heart Problems N Thyroid Problems N Kidney or Bladder Problems N GI Problems N Eating Disorder [...] SNOMED-CT Code Diagnosis ICD10 Code Diagnosis Note [id number] Taina Crowell [facility] [address] [address] 07/11/2023 10:26:02 07/11/2023 11:32:08 Gynecologic examination [id number] Z01.419 Z11.51 Take Calcium with Vitamin D [...] Ng Member ID Guarantor Name 07/11/2023 1 [facility] (MEDICAID HMO) [id number] Kirsty Gray [id number] Kirsty Gray Notes Date Note Type Note [...] Followed with yearly pap smears Taina Crowell [facility]- [address], [place], [address], [facility] 07/11/2023 11:30:50 OBGyn Episode Ob Episode Information Episode Created Date Number of Fetuses Patient Bloodtype Patient rh Status Prepregnancy Weight lbs Domestic Partner Domestic Partner Phone Father Name Freight Broker Agent Status 07/11/19 24 1 CLOSED Fetus Data [...] Domestic Partner Domestic Partner Phone Father Name Freight Broker Agent Status 07/11/19 24 1 CLOSED Fetus Data [...] Domestic Partner Domestic Partner Phone Father Name Freight Broker Agent Status 07/11/19 24 1 CLOSED Fetus Data First Name Last Name Admitted to NICU Weight (g) Sex Living Outcome Pediatric Complications Fetus ID Race Codes Race Delivery Type 2863.07 2704 M Full Term [id number] Primary Bruce Calculation Initial Bruce Date Initial [...] Domestic Partner Domestic Partner Phone Father Name Freight Broker Agent Status 07/11/19 24 1 CLOSED Fetus Data First Name Last Name Admitted to NICU Weight (g) Sex Living Outcome Pediatric Complications Fetus ID Race Codes Race Delivery Type , Induced [id number] Bruce Calculation Initial Bruce Date Initial Exam [...]
--- OUTSIDE RECORDS SUMMARY | 2024-09-13 07:14 | XMS_ITS | Clinical Summary ---
Author Organization [facility] Address [address] [place] [id number] Care Team Providers Care Bindery Machine Feeder Offbearer Name Role Phone No, Physician Primary Care Provider [phone] Encounters Date Type Department Care Team Description 08/05/2024 Results Follow-Up [facility] [address] [facility] [address] (Third Floor) [place] [address] Fanny Gao RN 08/02/2024 11:55 AM CDT Lab [facility] [address] [place] [id number] Pre-employment health screening examination 08/02/2024 Orders Only [facility] [address] [facility] [address] (Third Floor) [place] [address] Guille Banks MD Pre-employment health screening examination (Primary Dx) from Last 3 Months Immunizations Immunization Administration Dates Next Due DTP 09/27/1991,04/03/1990,1988 HPV, Quadrivalent 12/24/2007,06/12/2007,04/02/20 07 Hep A, Adult 04/28/2014 Hep B, Adolescent or Pediatric 04/27/2000 HiB 04/03/1990 Influenza, Split 06/04/2007 MMR 02/14/1992,04/03/1990 OPV 02/14/1992,04/03/1990,1988 Social History Tobacco Use Types Packs/Day Years Used Date Smoking Tobacco: Never Assessed Comments Unknown Sex and Gender Information Value Date Recorded Sex Assigned at Not on file Legal 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 Gender Identity Not on file Sexual Orientation Not on file Last Filed Vital Signs Vital Sign Reading Time Taken Comments Blood Pressure 138/80 02/28/2015 3:41 AM CDT Pulse 109 02/28/2015 3:41 AM CDT Temperature 36.9 C (98.5 F) 02/28/2015 3:41 AM CDT Respiratory Rate - - Oxygen Saturation 99% 02/28/2015 3:41 AM CDT Inhaled Oxygen Concentration - - Weight 65.8 kg (145 lb) 02/28/2015 3:41 AM CDT Height 149.9 cm (4' 11 ) 02/28/2015 3:41 AM CDT Body Mass Index 29.29 02/28/2015 3:41 AM CDT Plan of Treatment Not on file Procedures Procedure Name Priority Date/Time Associated Diagnosis Comments T-SPOT.TB Routine 08/02/2024 12:03 PM CDT Pre-employment health screening examination from Last 3 Months Results * T-SPOT.TB Blood (08/02/2024 12:03 PM CDT) [facility] T-SPOT.TB Negative SeeBelow Comment: Normal Value: Negative A negative test result does not exclude the possibility of exposure to or infection with Mycobacterium tuberculosis (M. tuberculosis). Patients with recent exposure to TB infected individuals exhibiting a negative T-SPOT.TB result should be considered for retesting within 6 weeks or if other relevant clinical symptoms indicate. Results from T-SPOT.TB testing must be used in conjunction with each individual's epidemiological history, current medical status, and results of other diagnostic evaluations. The T-SPOT.TB test is qualitative and results are reported as positive, borderline or negative, given that the test controls perform as expected. In line with the Centers for Disease Control and Prevention's 2010 recommendation to report quantitative measurements alongside the qualitative result, the laboratory provides spot counts for informational purposes only. The T-SPOT.TB test should not be interpreted as a quantitative test. T-SPOT.TB Panel A Spot Count 0 [facility] T-SPOT.TB Panel B Spot Count 1 [facility] T-SPOT.TB Negative Control Passed [facility] T-SPOT.TB Positive Control Passed [facility] Comment: Test Performed at: [facility] [employer] [address] [place] [id number] BRUNO,PHD Blood 08/02/2024 12:0 3 PM CDT 08/02/2024 1:22 PM CDT Narrative TAMY LAM - 08/04/2024 12:32 PM CDT Bill to [facility] - [address] Patient is employed by/enrolled at:->[facility] us Guille Banks MD LAB MICROBIOLOGY - GENERAL OR DERABLES Final Result TAMY [address] [facility] Department [place] [address] from Last 3 Months Insurance [facility] Care Teams Bindery Machine Feeder Offbearer Relationship Specialty Start Date End Date No, Physician PCP - General 08/02/24
--- OUTSIDE RECORDS SUMMARY | 2024-09-13 07:14 | XMS_ITS | Clinical Summary ---
Author Organization [facility] Address [address] [place] [place] [address] Care Team Providers Care Interactive Marketing Strategist Name Role Phone Unavailable Primary Care Provider Unavailabl e Source Comments [facility],non-owned Affiliates and Associated Physician Practices is amultiple site organization consisting of ambulatory clinics and hospital sitesin [place], [place], [place] and [place]. This disclosure is being madepursuant to the Care Everywhere program and may not contain all information available regarding this patient. 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 Gender Identity Not on file Sexual Orientation Not on file Plan of Treatment Health Maintenance Due Date Last Done Comments HIV SCREENING 01/04/2003 HEPATITIS C SCREENING 12/31/2005 DTAP/TDAP/TD VACCINES (1 - Tdap) 01/04/2007 HEPATITIS B VACCINE (1 of 3 - 19+ 3-dose series) 01/04/2007 COVID-19 VACCINE ( - 2023-2 5 season) 2024 DEPRESSION SCREENING 05/22/2024 INFLUENZA VACCINE (Season Ended) 2025 ZOSTER VACCINE (1 of 2) 01/04/2038 HIB VACCINE Aged Out No longer eligi ble based on patient's age to complete this topic HPV VACCINE Aged Out No longer eligi ble based on patient's age to complete this topic MENINGOCOCCAL (Group B) VACC INE SHARED DECISION-MAKING Aged Out No longer eligibl e based on patient's age to complete this topic MENINGOCOCCAL GROUPS A/C/Y/W VACCINE Aged Out No longer eligible b ased on patient's age to complete this topic PNEUMOCOCCAL VACCINE Aged Out No long er eligible based on patient's age to complete this topic
--- OUTSIDE RECORDS SUMMARY | 2024-09-13 07:14 | XMS_ITS | Encounter Summary ---
Author Organization [facility] Address [address] [place] [address] Care Team Providers Care Medication Technician Name Role Phone No, Physician Primary Care Provider [phone] Encounter Details Date Type Department Care Team (Late st Contact Info) Description 08/05/2024 Results Follow-Up [facility] Occupatiuonal Health [address] 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
--- OUTSIDE RECORDS SUMMARY | 2024-09-13 07:15 | XMS_ITS | Referral Summary ---
Author Organization [facility] Address [address] [place] [phone] Care Team Providers Care Regulatory Affairs Coordinator Name Role Phone No, Physician Primary Care Provider [phone] Encounters Date Type Department Care Team Description 08/05/2024 Results Follow-Up [facility] [address] [facility] Room [address] (Third Floor) [place] [address] Fanny Gao RN 08/02/2024 11:55 AM CDT Lab [facility] [address] [place] [address] Pre-employment health screening examination 08/02/2024 Orders Only [facility] [address] [facility] [address] (Third Floor) [place] [address] Guille Banks MD Pre-employment health screening examination [...] on file 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 T-SPOT.TB Panel A Spot Count 0 [facility] T-SPOT.TB Panel B Spot Count 1 [facility] T-SPOT.TB Negative Control Passed [facility] T-SPOT.TB Positive Control Passed [facility] Comment: Test Performed at: [employer] [facility], [facility] [address] [place] [phone] BRUNO,PHD Blood 08/02/2024 12:0 3 PM CDT 08/02/2024 1:22 PM CDT Narrative TAMY LAM - 08/04/2024 12:32 PM CDT Bill to [facility] - 1520 Patient is employed by/enrolled at:->[facility] us Guille Banks MD LAB MICROBIOLOGY - GENERAL OR DERABLES Final Result TAMY [address] [facility] Department [place] [address] from Last 3 Months Insurance [facility] Care Teams Regulatory Affairs Coordinator Relationship Specialty Start Date End Date No, Physician PCP - General 08/02/24
[2024-09-13 07:16] VITALS: BP 118/75; PULSE 105; RESP 20; TEMP 37.2; O2SAT 99
[2024-09-13 07:23] VITALS: BP 118/75; PULSE 90; RESP 18; O2SAT 98
--- NOTE | 2024-09-13 07:25 | ED.GENADULT ---
HPI - General Adult General Chief complaint: Upper Respiratory Infection Stated complaint: cold symptoms Time Seen by Provider: 09/13/24 07:15 History of Present Illness HPI narrative: 34-year-old female presenting to the emergency department for evaluation for sinus pressure, right ear pain, cough and congestion has been ongoing for the last 1-2 days. Patient states she has had low-grade fever. Patient has not been taking any antihistamines for this. Patient does report having seasonal allergies. Related Data Home Medications ?Medication ?Instructions ?Recorded ?Confirmed ?Last Taken ?Type burdock root 500 mg capsule mg PO 07/20/23 09/25/23 Unknown History lemon balm 1 tablet BYMOUTH DAILY 07/20/23 09/25/23 Unknown History magnesium oxide 1 tablet PO DAILY 07/20/23 09/25/23 Unknown History Allergies Allergy/AdvReac Type Severity Reaction Status Date / Time No Known Allergies Allergy Verified 09/13/24 07:12 Review of Systems Review of Systems: All systems reviewed & are unremarkable except as noted in HPI and below PMFSH Past Medical History Medical History No pertinent past medical history Surgical History Surgical History H/O section (~12/2011) Family History Family History Father Heart disease Social History Social History Smoking status: Never smoker Alcohol intake: current Substance use type: does not use Lack of Transportation: No Lack of Food: Never True Current Housing: I Have Housing Concerned About Future Housing: No Difficulty Paying Gas/Electric Bills: No Difficulty Paying for Meds: No Currently Unemployed: No Education: High School Diploma/GED Difficulty w/ Childcare or Family Care: No Living arrangements: with family Gender identity (if verbalized by the patient): Female Exam Narrative: APPEARANCE: Well appearing, no pain, no distress, well-nourished. HEAD: normocephalic, atraumatic. EYES: PERRLA/EOMI, conjunctivae clear. NOSE: Nasal congestion EARS: Fluid behind right tympanic without significant erythema or bulging THROAT: Pharynx clear, no exudate. NECK: Supple. No adenopathy, no masses. RESPIRATORY: Airway patent, respirations nonlabored. Clear to auscultation bilaterally, no rales, rhonchi, wheezing. CARDIOVASCULAR: Regular rate and rhythm without murmurs rubs or gallops. ABDOMINAL: Soft, nontender, nondistended, normal bowel sounds MUSCULOSKELETAL: Moves all extremities. Strength/ROM intact, No edema, No calf tenderness. NEURO: Alert. Cranial nerves II through XII intact. Grossly intact SKIN: Warm, dry. Normal Color Course Vital Signs Vital signs: Vital Signs Temperature 98.9 F 09/13/24 07:16 Pulse Rate 105 H 09/13/24 07:16 Respiratory Rate 20 09/13/24 07:16 Blood Pressure 118/75 09/13/24 07:16 Pulse Oximetry 99 09/13/24 07:16 Oxygen Delivery Room Air 09/13/24 07:16 Temperature 98.9 F 09/13/24 07:16 Pulse Rate 92 09/13/24 08:07 Respiratory Rate 19 09/13/24 08:07 Blood Pressure 109/86 09/13/24 08:07 Pulse Oximetry 98 09/13/24 08:07 Oxygen Delivery Room Air 09/13/24 07:23 Medical Decision Making MDM Narrative Medical decision making narrative: 34-year-old female present to the emergency department for evaluation for 2 days of cough congestion body aches fatigue. Patient's chest x-ray was normal. Patient did test positive for COVID. Patient was provided Peter Lidia kelly for symptom control. Differential Diagnosis Differential Diagnosis: COVID, RSV, influenza, pneumonia Vital Signs Vital Signs: Vital Signs Temperature 98.9 F 09/13/24 07:16 Pulse Rate 105 H 09/13/24 07:16 Respiratory Rate 20 09/13/24 07:16 Blood Pressure 118/75 09/13/24 07:16 Pulse Oximetry 99 09/13/24 07:16 Oxygen Delivery Room Air 09/13/24 07:16 Temperature 98.9 F 09/13/24 07:16 Pulse Rate 92 09/13/24 08:07 Respiratory Rate 19 09/13/24 08:07 Blood Pressure 109/86 09/13/24 08:07 Pulse Oximetry 98 04/25/25 08:07 Oxygen Delivery Room Air 09/13/24 07:23 Lab Data Labs: Lab Results 09/13/24 Range/Units 07:22 Influenza A (RT-PCR) Negative (Negative) Influenza B (RT-PCR) Negative (Negative) RSV (RT-PCR) Negative (Negative) SARS-CoV-2 RNA (RT-PCR) Positive A (Negative) Imaging Data Radiologist's impression: Impressions Chest X-Ray 09/13/24 07:35 IMPRESSION: 1: NO ACUTE CARDIOPULMONARY DISEASE. Discharge Plan Discharge Clinical Impression: COVID Patient Disposition: Home Condition: Stable Instructions: Antibiotic Form, COVID-19 (Coronavirus Disease 2019) (ED) Additional Instructions: Tylenol and ibuprofen for fever and for body aches. Albuterol for shortness breath and Tessalon Perles for cough. Have close follow-up with your primary care physician. Patient Language: Turkmen Prescriptions: New albuterol sulfate 90 mcg/actuation HFA aerosol inhaler 1 puff inhalation QID Qty: 6.7 0RF benzonatate 100 mg capsule 100 mg PO TID PRN (Reason: cough) Qty: 14 0RF No Action magnesium oxide 1 tablet PO DAILY lemon balm 1 tablet BYMOUTH DAILY burdock root 500 mg capsule PO ondansetron 4 mg tablet,disintegrating 4 mg PO Q8H PRN (Reason: nausea and vomiting) Qty: 15 0RF Follow-up/Referrals: PHYSICIAN,ORGANIZATIONAL DEVELOPMENT SPECIALIST [Non-Staff] - Stand Alone Forms: Work/School Release IP
--- OUTSIDE RECORDS SUMMARY | 2024-09-13 07:37 | XMS_ITS | Referral Summary ---
Author Organization [facility] Address [address] [place] [phone] Care Team Providers Care Ergonomic Specialist Name Role Phone No, Physician Primary Care Provider [phone] Encounters Date Type Department Care Team Description 08/05/2024 Results [facility] [address] [facility] Room [address] (Third Floor) [place] [address] Fanny Gao RN 08/02/2024 11:55 AM CDT Lab [facility] [address] [place] [address] Pre-employment health screening examination 08/02/2024 Orders Only [facility] OccupCounts include 234 beds at the [facility] [address] [facility] [address] (Third Floor) [place] [address] Guille Banks MD Pre-employment health screening examination [...] on file 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 T-SPOT.TB Panel A Spot Count 0 [facility] T-SPOT.TB Panel B Spot Count 1 [facility] T-SPOT.TB Negative Control Passed [facility] T-SPOT.TB Positive Control Passed [facility] Comment: Test Performed at: [employer] [facility], [facility] [address] [place] [phone] BRUNO,PHD Blood 08/02/2024 12:0 3 PM CDT 08/02/2024 1:22 PM CDT Narrative TAMY LAM - 08/04/2024 12:32 PM CDT Bill to [facility] - 1520 Patient is employed by/enrolled at:->[facility] us Guille Banks MD LAB MICROBIOLOGY - GENERAL OR DERABLES Final Result TAMY [address] [facility] Department [place] [address] from Last 3 Months Insurance [facility] Care Teams Ergonomic Specialist Relationship Specialty Start Date End Date No, Physician PCP - General 08/02/24
--- OUTSIDE RECORDS SUMMARY | 2024-09-13 07:37 | XMS_ITS | Encounter Summary ---
Author Organization [facility] Address [address] [place] [address] Care Team Providers Care Ammonia Technician Name Role Phone No, Physician Primary Care Provider [phone] Encounter Details Date Type Department Care Team (Late st Contact Info) Description 08/05/2024 Results Follow-Up [facility] Occupatiuonal Health [address] [facility] Room [address] (Third Floor) [place] [address] Fanny Gao RN Social History Tobacco Use Types Packs/Day Years Used Date Smoking Tobacco: Never Assessed Comments Unknown Sex and Gender Information Value Date Recorded Sex Assigned at Not on file 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
--- OUTSIDE RECORDS SUMMARY | 2024-09-13 07:37 | XMS_ITS | Clinical Summary ---
Author Organization [facility] Address [address] [place] [phone] Care Team Providers Care Customer Service Representative Teller Name Role Phone No, Physician Primary Care Provider [phone] Encounters Date Type Department Care Team Description 08/05/2024 Results [facility] [address] [facility] Room [address] (Third Floor) [place] [address] Fanny Gao RN 08/02/2024 11:[address] 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 T-SPOT.TB Panel A Spot Count 0 [facility] T-SPOT.TB Panel B Spot Count 1 [facility] T-SPOT.TB Negative Control Passed [facility] T-SPOT.TB Positive Control Passed [facility] Comment: Test Performed at: [employer] [facility], [employer] [address] [place] [phone] BRUNO,PHD Blood 08/02/2024 12:0 3 PM CDT 08/02/2024 1:22 PM CDT Narrative TAMY LAM - 08/04/2024 12:32 PM CDT Bill to [facility] - 1520 Patient is employed by/enrolled at:->[facility] us Guille Banks MD LAB MICROBIOLOGY - GENERAL OR DERABLES Final Result TAMY [address] [facility] Department [place] [address] from Last 3 Months Insurance [facility] Care Teams Customer Service Representative Teller Relationship Specialty Start Date End Date No, Physician PCP - General 08/02/24
--- OUTSIDE RECORDS SUMMARY | 2024-09-13 07:37 | XMS_ITS | Clinical Summary ---
Author Organization [facility] Address [address] [facility] [place] [address] Care Team Providers Care Rehabilitation Teacher Name Role Phone Unavailable Primary Care Provider Unavailabl e Source Comments [facility],non-owned Affiliates and Associated Physician Practices is amultiple site organization consisting of ambulatory clinics and hospital sitesin [place], [place], [place] and [place]. This disclosure is being madepursuant to the Care Everywhere program and may not contain all information available regarding this patient. 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
[2024-09-13 08:03] LABS: Influenza A QL RT-PCR Negative (Negative); Influenza B QL RT-PCR Negative (Negative); RSV RNA, RT-PCR Negative (Negative); SARS-CoV-2 RNA PCR Positive (Negative)
[2024-09-13 08:07] VITALS: BP 109/86; PULSE 92; RESP 19; O2SAT 98
== END 2024-09-13 08:16 | disposition home or self-care (01) ==
PROVIDERS: Emergency Provider Emergency Medicine
DX: U07.1 COVID-19 (principal)
CPT/HCPCS: 71045; 87637; 99283

== ENCOUNTER 2025-02-05 07:00 | Emergency (ER) | payer SELFPAY ==
--- OUTSIDE RECORDS SUMMARY | 2025-02-05 07:53 | XMS_ITS | Clinical Summary ---
Author Organization [facility] Address [address] [facility] [place] [address] Care Team Providers Care Insurance Agency Sales Manager Name Role Phone Unavailable Primary Care Provider Unavailabl e Source Comments [facility],non-owned Affiliates and Associated Physician Practices is amultiple site organization consisting of ambulatory clinics and hospital sitesin [place], [place], [place] and [place]. This disclosure is being madepursuant to the Care Everywhere program and may not contain all information available regarding this patient. 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
--- OUTSIDE RECORDS SUMMARY | 2025-02-05 07:53 | XMS_ITS | Clinical Summary ---
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
--- NOTE | 2025-02-05 07:54 | ED.EAR ---
HPI - Ear Problem General Chief complaint: Ear Stated complaint: Ringing in Right Ear Time Seen by Provider: 02/05/25 07:33 History of Present Illness HPI Narrative: Patient is a 35-year-old female who presents ER with about 5 days of right ear issues. She feels like she hears the ocean and her static in the ear. It is persistent. Makes it hard to sleep. No pain in the ear. She has not inserted anything into her ear that could have caused injury, no leakage of fluid from the ear. No fevers or chills or sweats. Denies sinus congestion/sore throat/cough. No dizziness. Related Data Home Medications ?Medication ?Instructions ?Recorded ?Confirmed ?Last Taken ?Type burdock root 500 mg capsule mg PO 07/20/23 09/25/23 Unknown History lemon balm 1 tablet BYMOUTH DAILY 07/20/23 09/25/23 Unknown History magnesium oxide 1 tablet PO DAILY 07/20/23 09/25/23 Unknown History Allergies Allergy/AdvReac Type Severity Reaction Status Date / Time No Known Allergies Allergy Verified 02/05/25 07:01 Review of Systems Constitutional: Constitutional: Reports no additional constitutional complaints ENT: Reports system reviewed and no additional complaints, except as documented Cardiovascular: Cardiovascular: Reports no additional cardiovascular complaints Respiratory: Respiratory: Reports no additional respiratory complaints [facility] Past Medical History Medical History No pertinent past medical history Surgical History Surgical History H/O section (~12/2011) Family History Family History Father Heart disease Social History Social History Smoking status: Never smoker Alcohol intake: current Substance use type: does not use Lack of Transportation: No Lack of Food: Never True Current Housing: I Have Housing Concerned About Future Housing: No Difficulty Paying Gas/Electric Bills: No Difficulty Paying for Meds: No Currently Unemployed: No Education: High School Diploma/GED Difficulty w/ Childcare or Family Care: No Living arrangements: with family Gender identity (if verbalized by the patient): Female Exam Narrative: GENERAL: Well-appearing, well-nourished, and in no acute distress. HEAD: Normocephalic, atraumatic. EYES: PERRL and EOMI. ENT: Mucous membranes moist. TMs normal bilaterally without perforation/erythema/air-fluid levels. NECK: Supple. EXTREMITIES: Normal range of motion. No edema. NEURO: Alert and oriented x3. PSYCH: Normal mood and affect. Course Course Emergency Course: Meclizine here and for home. Also recommend Zyrtec. Follow-up with ENT if symptoms not improving. Discharge Plan Discharge Clinical Impression: Tinnitus Patient Disposition: Home Condition: Stable Instructions: Tinnitus (ED) Additional Instructions: Return to the ER if you have spinning dizziness, you can not keep down food/water/medication, you develop severe pain, or you have additional concerns. Patient Language: Mohawk Prescriptions: New meclizine 25 mg tablet 25 mg PO TID PRN (Reason: tinnitus) Qty: 14 0RF cetirizine [Zyrtec] 10 mg tablet 10 mg PO DAILY Qty: 14 0RF No Action magnesium oxide 1 tablet PO DAILY lemon balm 1 tablet BYMOUTH DAILY burdock root 500 mg capsule PO albuterol sulfate 90 mcg/actuation HFA aerosol inhaler 1 puff inhalation QID Qty: 6.7 0RF benzonatate 100 mg capsule 100 mg PO TID PRN (Reason: cough) Qty: 14 0RF ondansetron 4 mg tablet,disintegrating 4 mg PO Q8H PRN (Reason: nausea and vomiting) Qty: 15 0RF Follow-up/Referrals: Beto Marcus MD [Physician, Ear, Nose, Throat] UNKNOWN,DOCTOR [Primary Care Provider]
[2025-02-05] MEDS: MECLIZINE HCL 25 MG TABLET PO (07:59)
[2025-02-05 08:03] VITALS: BP 127/97; PULSE 72; RESP 16; TEMP 36.7; O2SAT 97
== END 2025-02-05 08:12 | disposition home or self-care (01) ==
PROVIDERS: Emergency Provider Emergency Medicine
DX: H93.11 Tinnitus, right ear (principal)
CPT/HCPCS: 99283; A9270

== ENCOUNTER 2025-03-24 18:03 | Emergency (ER) | payer SELFPAY ==
--- NOTE | ~2025-03-24 | XR_ITS ---
XR chest 1V portable INDICATION:chest tightness . REFERENCE: None FINDINGS: A single AP of the chest demonstrates normal heart size. The lungs are clear. There is no evidence of pneumothorax or pleural effusion. IMPRESSION: No acute pulmonary findings. Reviewed, dictated and finalized at location S. [facility]
--- NOTE | 2025-03-24 18:05 | ECG_ITS ---
Test Date: 2025-03-24 18:39:02 Measurements Intervals [place] Rate: 102 P: 50 NV: 145 QRS: 57 QRSD: 78 T: 55 QT: 341 QTc: 444 Interpretive Statements SINUS TACHYCARDIA ABNORMAL RHYTHM ECG No previous ECG available for comparison Electronically Signed On 03-24-2025 18:47:50 ELECTRONIC WARFARE SPECIALIST by Eli Espinal M.D.
--- OUTSIDE RECORDS SUMMARY | 2025-03-24 18:05 | XMS_ITS | Clinical Summary ---
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
--- OUTSIDE RECORDS SUMMARY | 2025-03-24 18:05 | XMS_ITS | Clinical Summary ---
Author Organization [facility] Address [address] [facility] [place] [address] Care Team Providers Care Supervisor Water Treatment Plant Name Role Phone Unavailable Primary Care Provider Unavailabl e Source Comments [facility],non-owned Affiliates and Associated Physician Practices is amultiple site organization consisting of ambulatory clinics and hospital sitesin [place], [place], [place] and [place]. This disclosure is being madepursuant to the Care Everywhere program and may not contain all information available regarding this patient. 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
[2025-03-24 18:31] VITALS: BP 151/85; PULSE 98; RESP 20; TEMP 36.6; O2SAT 100
--- OUTSIDE RECORDS SUMMARY | 2025-03-24 20:25 | XMS_ITS | Clinical Summary ---
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
--- OUTSIDE RECORDS SUMMARY | 2025-03-24 20:25 | XMS_ITS | Clinical Summary ---
Author Organization [facility] Address [address] [place] [address] Care Team Providers Care Welder Apprentice Name Role Phone Unavailable Primary Care Provider Unavailabl e Source Comments [facility],non-owned Affiliates and Associated Physician Practices is amultiple site organization consisting of ambulatory clinics and hospital sitesin [place], [place], [place] and [place]. This disclosure is being madepursuant to the Care Everywhere program and may not contain all information available regarding this patient. 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
--- NOTE | 2025-03-24 20:49 | ED_ITS ---
HPI - Anxiety General Chief Complaint: Anxiety Stated Complaint: States feels like she is have a panic attack Time Seen by Provider: 03/24/25 20:07 History of Present Illness HPI narrative: 35-year-old female with no pertinent chronic past medical history presenting to the emergency department with anxiety and states she is having a panic attack. 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 She became extremely tearful and anxious and having chest tightness and shortness of breath. No reported history anxiety previously. No medications that she takes chronically. States she is having some chest tightness now and is calm but frequently tears up when she speaks about what happened at work today. Denies any somatic complaints otherwise. No history of diabetes, hypertension or cardi ac disease to her knowledge. No strong family history of cardiac disease. Has not previously sought help for anxiety and does not have a primary care provider and is interested in seeing one. Was otherwise in her normal state of health. No medication allergies. Did not take anything prior to arrival. Related Data Home Medications ?Medication ?Instructions ?Recorded ?Confirmed ?Last Taken ?Type burdock root 500 mg capsule mg PO 07/20/23 09/25/23 Un known History lemon balm 1 tablet BYMOUTH DAILY 09/25/23 Unknown History magnesium oxide 1 tablet PO DAILY 07/20/23 0 09/25/23 Unknown History Allergies Allergy/AdvReac Type Severity Reaction Status Date / Time No Known Allergies Allergy Verified 02/05/25 07:01 Review of Systems Review of Systems: As reviewed above in HPI [facility] Past Medical History Medical History No pertinent past medical history Surgical History Surgical History H/O section (~12/2011) Family History Family History Father Heart disease Social History Social History Smoking status: Never smoker Alcohol intake: current Substance use type: does not use Lack of Transportation: No Lack of Food: Never True Current Housing: I Have Housing Concerned About Future Housing: No Difficulty Paying Gas/Electric Bills: No Difficulty Paying for Meds: No Currently Unemployed: No Education: High School Diploma/GED Difficulty w/ Childcare or Family Care: No Living arrangements: with family Gender identity (if verbalized by the patient): Female Exam Narrative: GENERAL: [Well-appearing, well-nourished, and in no acute distress.] HEAD: [Normocephalic, atraumatic.] EYES: [PERRLA and EOMI.] ENT: Nares clear, no rhinorrhea or epistaxis. Mucous membranes moist. NECK: Supple. CHEST: [Clear to auscultation. No respiratory distress.] HEART: [Regular rate and rhythm]. No murmur heard. [Normal peripheral pulses.] ABDOMEN: [Soft, nondistended], [nontender], [No rigidity or guarding] EXTREMITIES: Normal range of motion. [No edema.] SKIN: Warm, dry, no rash. NEURO: [No focal deficits]. Alert and oriented [x3.] PSYCH: very tearful affect, Sad mood but no SI/HI Course Vital Signs Vital signs: Vital Signs Temperature 36.6 C 03/24/25 18:31 Pulse Rate 98 03/24/25 18:31 Respiratory Rate 20 03/24/25 18:31 Blood Pressure 151/85 H 03/24/25 18:31 Pulse Oximetry 100 03/24/25 18:31 Temperature 36.6 C 03/24/25 18:31 Pulse Rate 72 03/24/25 22:11 Respiratory Rate 18 03/24/25 22:11 Blood Pressure 131/62 03/24/25 22:11 Pulse Oximetry 99 03/24/25 22:11 Oxygen Delivery Room Air 03/24/25 20:11 MDM - Anxiety MDM Narrative Medical decision making narrative: 35-year-old female with no pertinent chronic past medical history presenting to the emergency department with anxiety and states she is having a panic att ack. 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 She became extremely tearful and anxious and having chest tightness and shortness of breath. No reported history anxiety previously. No medications that she takes chronically. States she is having some chest tightness now and is calm but frequently tears up when she speaks about what happened at work today. Denies any somatic complaints otherwise. No history of diabetes, hypertension or cardiac disease to her knowledge. No strong family history of cardiac disease. Has not previously sought help for anxiety and does not have a primary care provider and is interested in seeing one. Was otherwise in her normal state of health. No medication allergies. Did not take anything prior to arrival. patient has an unremarkable physical examination aside from her sad mood and tearful affect. Offered the patient laboratory studies and imaging to rule out any cardiac issues but patient declined and thinks this is all anxiety related. Was comfortable getting an EKG and a chest x-ray. Discussed treatment options and plans and she was hoping to try something for her anxiety so she was given a 5 mg p.o. dose of Valium and re-evaluated afterwards. Suspicion anxiety versus panic attack versus acute stress reaction rather than cardiac etiology. EKG unremarkable. Chest x-ray unremarkable. Patient felt better after Valium. Will be discharged home with primary care provider follow-up and Atarax as needed. Medical Records Attestation: I reviewed the patient's medical records. Imaging Data Attestation: I personally reviewed and interpreted this imaging study as follows: My impression: Impressions Chest X-Ray 03/24/25 20:55 IMPRESSION: No acute pulmonary findings. Discharge Plan Discharge Clinical Impression: Anxiety, Panic attack Patient Disposition: Home Condition: Stable Instructions: Antibiotic Form, Anxiety (ED) Additional Instructions: Follow-up with your primary care provider which we have referred you to. We rodriguez ve sent you prescription for Atarax which can help with anxiety. Patient Language: Khmer Prescriptions: New hydroxyzine HCl 10 mg tablet 10 mg PO TID PRN (Reason: anxiety) Qty: 30 0RF No Action magnesium oxide 1 tablet PO DAILY lemon balm 1 tablet BYMOUTH DAILY burdock root 500 mg capsule PO albuterol sulfate 90 mcg/actuation HFA aerosol inhaler 1 puff inhalation QID Qty: 6.7 0RF benzonatate 100 mg capsule 100 mg PO TID PRN (Reason: cough) Qty: 14 0RF ondansetron 4 mg tablet,disintegrating 4 mg PO Q8H PRN (Reason: nausea and vomiting) Qty: 15 0RF meclizine 25 mg tablet 25 mg PO TID PRN (Reason: tinnitus) Qty: 14 0RF cetirizine [Zyrtec] 10 mg tablet 10 mg PO DAILY Qty: 14 0RF Follow-up/Referrals: Galindo Peck MD [Physician, Family Practice] - 2 Days Referral Note: PCP UNKNOWN,DOCTOR [Primary Care Provider] Stand Alone Forms: Work/School Release IP Time of Disposition: 22:02
[2025-03-24] MEDS: diazePAM (*CRX) 5 MG TABLET PO (21:10)
[2025-03-24 22:11] VITALS: BP 131/62; PULSE 72; RESP 18; O2SAT 99
== END 2025-03-24 22:11 | disposition home or self-care (01) ==
PROVIDERS: Emergency Provider Student in an Organized Health Care Education/Training Program
DX: F41.0 Panic disorder [episodic paroxysmal anxiety] (principal); F41.9 Anxiety disorder, unspecified; R00.0 Tachycardia, unspecified
CPT/HCPCS: 71045; 93005; 99283; A9270